=== PATIENT | female | born 1990 | race Caucasian/White ===

== ENCOUNTER 2017-01-21 12:13 | Emergency (ER) | payer MEDICAID ==
--- NOTE | 2017-01-21 13:10 | CPEKG ---
Heart Rate: 74 RR Interval: 811 P-R Interval: 120 QRSD Interval: 90 QT Interval: 404 QTC Interval: 449 P [place]: 75 QRS [place]: 82 T Wave [place]: 36 EKG Severity - NORMAL ECG - EKG Impression: SINUS RHYTHM Electronically Signed By: Agustin Mata 21-Jan-2017 15:32:53
[2017-01-21] MEDS ORDERED: NS 1,000 ML IV ONE (13:17)
[2017-01-21 13:26] LABS: % IMMATURE GRANULYOCYTES 0.2 % (0.0-1.1); ABSOLUTE IMMATURE GRANULOCYTES 0.02 10^3/uL (0.00-0.10); ADD DIFF? NO; ADD MORPH? NO; ADD SCAN? NO; ATYPICAL LYMPHOCYTE FLAG 10 (0-99); FRAGMENT RBC FLAG 0 (0-99); HEMATOCRIT 43.7 % (38.0-47.0); HEMOGLOBIN 14.3 g/dL (12.6-16.3); LEFT SHIFT FLG 0 (0-99); LIPEMIA HEMOLYSIS FLAG 80 (0-99); MEAN CELL HEMOGLOBIN 28.8 pg (27.9-34.1); MEAN CELL HEMOGLOBIN CONCENTR. 32.7 g/dL (32.4-36.7); MEAN CELL VOLUME 87.9 fL (81.5-99.8); MEAN PLATELET VOLUME 9.9 fL (8.7-11.7); PLATELET CLUMPS FLAG 0 (0-99); PLATELET COUNT 312 10^3/uL (150-400); RED BLOOD CELL COUNT 4.97 10^6/uL (4.18-5.33); RED CELL DISTRIBUTION WIDTH 11.8 % (11.5-15.2)
--- NOTE | 2017-01-21 13:33 | EDPHY ---
H & P Stated Complaint: syncope x 2 today 5 am bthrm, refused ems, "migraine" yesterday Time Seen by Provider: 01/21/17 13:19 HPI/ROS: CHIEF COMPLAINT: Syncope following migraine headache HISTORY OF PRESENT ILLNESS: The patient presents to the ED after she experienced an episode of syncope x2 in the edge stitcher hours. The patient reportedly did have a migraine headache yesterday. She typically gets migraine headaches with some frequency. She manages this condition with ibuprofen and occasionally Flexeril. Patient did not sustain a significant traumatic injuries result of her syncopal episode in the bathroom today. She was not incontinent, she did not bite her tongue, she does complain of an ongoing migrainous type headache with occipital headache. The patient has felt generally weak today. The patient reportedly took medical marijuana for treatment of her headache at 9 o'clock last night. She has used this in the past without similar episodes of syncope. The patient denies any complaints of acute pain currently. She states that she experienced a typical migraine yesterday. She does REVIEW OF SYSTEMS: A comprehensive 10 point review of systems is otherwise negative aside from elements mentioned in the history of present illness. - Personal History LMP (Females 10-55): 15-21 Days Ago Current Tetanus/Diphtheria Vaccine: Unsure Current Tetanus Diphtheria and Acellular Pertussis (TDAP): Unsure - Medical/Surgical History Hx Asthma: No Hx Chronic Respiratory Disease: No Hx Diabetes: No Hx Cardiac Disease: No Hx Renal Disease: No Hx Cirrhosis: No Hx Alcoholism: No Hx HIV/AIDS: No Hx Splenectomy or Spleen Trauma: No Other PMH: denies no hx syncope. chronic neck pain - Social History Smoking Status: Never smoked Constitutional: Initial Vital Signs Temperature (C) 36.5 C 01/21/17 12:32 Heart Rate 82 01/21/17 12:32 Respiratory Rate 16 01/21/17 12:32 Blood Pressure 139/82 H 01/21/17 12:32 O2 Sat (%) 99 01/21/17 12:32 O2 Delivery Mode Room Air Allergies/Adverse Reactions: No Known Allergies Allergy (Unverified 01/21/17 12:32) Home Medications: Medication Instructions Recorded NK [No Known Home Meds] 01/21/17 Medical Decision Making - Diagnostics EKG Interpretation: EKG: Complete interpretation has been separately recorded in the [facility] archive. Summary impression: Sinus rhythm Imaging Results: Imaging Impressions Head CT 01/21/17 14:27 Impression: Normal brain. No intracranial hemorrhage, mass or evidence of ischemia. Findings discussed with Emergency Department physician, Agustin Mata at 01/21/2017 14:48. ED Course/Re-evaluation: The patient presents to the ED after 2 episodes of syncope. The patient did have some decreased oral intake yesterday. The patient also has a history of chronic migraines. The patient did take some medications including Flexeril as well as oral THC which certainly could have precipitated her symptoms. There is no seizure activity observed. In the emergency department, the patient is in no acute distress with a normal neurologic examination. Given her complaints of syncope with an occipital headache she was taken for a CT scan of the brain which demonstrates no evidence of acute intracranial hemorrhage. Additionally, the patient received a workup for syncope including a normal EKG, CBC, basic metabolic panel and negative test. While in the emergency department over 3 hour. The patient was rehydrated underwent serial exams. She received IV Toradol for her headache. The patient was reexamined by myself at 3:20 p.m.. I have reviewed the results of her negative workup in the ED today. At this point time I do feel the patient can safely be discharged home with customary aftercare instructions and return precautions. Differential Diagnosis: Differential diagnosis considered includes vasovagal syncope, intracranial hemorrhage, arrhythmia, metabolic abnormality, intrauterine , ectopic - Data Points Laboratory Results: Laboratory Results 01/21/17 13:05 01/21/17 13:05 01/21/17 01/21/17 01/21/17 13:18 13:05 13:05 WBC 8.41 10^3/uL 10^3/uL (3.80-9.50) RBC 4.97 10^6/uL 10^6/uL (4.18-5.33) Hgb 14.3 g/dL g/dL (12.6-16.3) Hct 43.7 % % (38.0-47.0) MCV 87.9 fL fL (81.5-99.8) MCH 28.8 pg pg (27.9-34.1) MCHC 32.7 g/dL g/dL (32.4-36.7) RDW 11.8 % % (11.5-15.2) Plt Count 312 10^3/uL 10^3/uL (150-400) MPV 9.9 fL fL (8.7-11.7) Neut % (Auto) 67.0 % % (39.3-74.2) Lymph % (Auto) 24.0 % % (15.0-45.0) [place] % (Auto) 7.6 % % (4.5-13.0) Eos % (Auto) 0.8 % % (0.6-7.6) Baso % (Auto) 0.4 % % (0.3-1.7) Nucleat RBC Rel Count 0.0 % % (0.0-0.2) Absolute Neuts (auto) 5.63 10^3/uL 10^3/uL (1.70-6.50) Absolute Lymphs (auto) 2.02 10^3/uL 10^3/uL (1.00-3.00) Absolute Monos (auto) 0.64 10^3/uL 10^3/uL (0.30-0.80) Absolute Eos (auto) 0.07 10^3/uL 10^3/uL (0.03-0.40) Absolute Basos (auto) 0.03 10^3/uL 10^3/uL (0.02-0.10) Absolute Nucleated RBC 0.00 10^3/uL 10^3/uL (0-0.01) Immature Gran % 0.2 % % (0.0-1.1) Immature Gran # 0.02 10^3/uL 10^3/uL (0.00-0.10) Sodium 140 mEq/L mEq/L (134-144) Potassium 4.6 mEq/L mEq/L (3.5-5.2) Chloride 103 mEq/L mEq/L (97-110) Carbon Dioxide 26 mEq/l mEq/l (22-31) Anion Gap 11 mEq/L mEq/L (8-16) BUN 11 mg/dL mg/dL (7-23) Creatinine 0.8 mg/dL mg/dL (0.6-1.0) Estimated GFR > 60 Glucose 89 mg/dL mg/dL (70-100) Calcium 9.8 mg/dL mg/dL (8.5-10.4) Beta HCG, Qual NEGATIVE Medications Given: Discontinued Medications Sodium Chloride (Ns) 1,000 mls @ 0 mls/hr IV ONCE ONE PRN Reason: Wide Open Stop: 01/21/17 13:18 Last Admin: 01/21/17 13:18 Dose: 1,000 mls Ketorolac Tromethamine (Toradol) 30 mg IVP EDNOW ONE Stop: 01/21/17 14:28 Last Admin: 01/21/17 14:30 Dose: 30 mg Departure - Departure Disposition: Home, Routine, Self-Care Clinical Impression: Syncope, Vasovagal episode Condition: Good Instructions: Syncope (ED) Additional Instructions: 1. The workup done in the emergency department today demonstrates no obvious abnormality. Your CT scan, EKG and laboratory studies are all within normal limits. 2. Please schedule a follow-up appointment with the warranty administrator you have been referred to for any recurrent episodes of passing out. 3. Please return to the ED for severe headache, numbness, weakness, chest pain, difficulty breathing or other concerns. Referrals: Carlos Baker MD [Medical Doctor] - As per Instructions
[2017-01-21 13:52] LABS: ANION GAP 11 mEq/L (8-16); CALCIUM 9.8 mg/dL (8.5-10.4); CARBON DIOXIDE 26 mEq/l (22-31); CHLORIDE 103 mEq/L (97-110); CREATININE 0.8 mg/dL (0.6-1.0); GLOMERULAR FILTRATION RATE > 60; GLUCOSE 89 mg/dL (70-100); POTASSIUM 4.6 mEq/L (3.5-5.2); SODIUM 140 mEq/L (134-144)
[2017-01-21 14:26] VITALS: PULSE 70; RESP 20; TEMP 98.6; O2SAT 97
[2017-01-21] MEDS ORDERED: KETOROLAC 30 MG/1 ML SDV IVP ONE (14:27)
[2017-01-21 15:49] VITALS: BP 123/67
== END 2017-01-21 15:49 | disposition home or self-care (01) ==
DX: R55 Syncope and collapse (principal)
CPT/HCPCS: 96374; J1885